=== PATIENT | male | born 1995 | race Caucasian/White ===

== ENCOUNTER 2021-04-07 18:48 | Emergency (ER) | payer SELFPAY ==
[2021-04-07] MEDS ORDERED: Lidocaine 1% PF 5 ML VIAL ONE (19:23)
[2021-04-07] MEDS ORDERED: cefTRIAXone\\ROCEPHIN 500 MG VIAL ONE (19:23)
[2021-04-07 19:45] LABS: Bacteria/HPF None Seen HPF (None Seen); Bilirubin Negative (Negative); Blood, Urine Negative (Negative); Clarity Clear (Clear); Glucose, Urine (Dipstick) Normal (Negative); Ketone, Urine Negative (Negative); Leukocyte 25 Leu/uL (Negative); Nitrite Negative (Negative); Protein, Urine (Dipstick) 10 mg/dL (Neg-Trace); RBC/HPF 0-3 HPF (0-3); Specific Gravity, Urine 1.027 (1.002-1.036); Squamous Epithelial None Seen HPF (0-3); Urobilinogen Normal mg/dL (Less than 2); pH, Urine 5.5 (5.0-9.0)
[2021-04-08 15:26] LABS: Chlam.trachomatis by PCR,Urine DETECTED (NotDetected)
== END 2021-04-07 20:33 | disposition short-term general hospital (02) ==
LOC: ERS 18:48
DX: N34.2 Other urethritis (principal); R30.0 Dysuria; F17.290 Nicotine dependence, other tobacco product, uncomplicated
CPT/HCPCS: 81003; 81015; 87491; 87591; 96372; 99283; J0696